=== PATIENT | female | born 1980 | race Asian ===

== ENCOUNTER 2018-08-26 11:35 | Emergency (ER) | payer OTHER ==
[~2018-08-26] VITALS: Ht 160 cm; Wt 56.2 kg
[2018-08-26 11:38] VITALS: Ht 160 cm; Wt 56.2 kg
[2018-08-26 12:54] LABS: BASOPHIL % 0.5 % (0-2); PLATELET COUNT 254 x10^3mcL (130-400)
[2018-08-26 13:00] LABS: RED CELL DISTRIBUTION WIDTH 14.9 % (11.5-14.5)
[2018-08-26 13:09] LABS: CALCIUM 10.2 mg/dL (8.5-10.1); CARBON DIOXIDE 30.3 mmol/L (21-32); CHLORIDE SERUM 105 mmol/L (98-107); CREATININE SERUM 0.8 mg/dL (0.6-1.0); GFR1 > 60 mL/min; GLUCOSE SERUM 90 mg/dL (74-106); POTASSIUM SERUM 4.2 mmol/L (3.5-5.1); SODIUM SERUM 142 mmol/L (136-145)
[2018-08-26 13:13] LABS: ALKALINE PHOSPHATASE 48 U/L (46-116); ALT/SGPT 28 U/L (14-59); AST/SGOT 17 U/L (15-37); BILIRUBIN TOTAL 0.51 mg/dL (0.20-1.00); TOTAL PROTEIN, SERUM 7.3 g/dL (6.4-8.2)
[2018-08-26 14:13] VITALS: BP 110/68
== END 2018-08-26 14:13 | disposition home or self-care (01) ==
LOC: ED 11:35
PROVIDERS: Emergency Medicine
DX: R07.89 Other chest pain (principal)
CPT/HCPCS: 36415; Q0092